=== PATIENT | female | born 1970 | race Two or more races ===

== ENCOUNTER 2017-08-18 13:16 | Outpatient (CLI) | payer OTHER | END 2017-08-18 13:24 | disposition home or self-care (01) | LOC: MAMO-SONO 13:16 | DX: Z12.31 Encounter for screening mammogram for malignant neoplasm of breast (principal) ==

== ENCOUNTER → 2018-11-03 | Outpatient (CLI) | payer OTHER | END | disposition home or self-care (01) | LOC: MAMO-SONO 07:45 → SONOGRAMA 08:06 | DX: R10.11 Right upper quadrant pain (principal) ==

== ENCOUNTER 2018-12-05 14:00 | Outpatient (CLI) | payer OTHER | END 2018-12-05 14:06 | disposition home or self-care (01) | LOC: MAMO-SONO 14:00 | DX: Z12.31 Encounter for screening mammogram for malignant neoplasm of breast (principal); Z87.898 Personal history of other specified conditions; N63.10 Unspecified lump in the right breast, unspecified quadrant; N63.20 Unspecified lump in the left breast, unspecified quadrant ==

== ENCOUNTER 2020-05-26 10:34 | Outpatient (CLI) | payer OTHER | END 2020-05-26 10:45 | disposition HB | LOC: MAMO-SONO 10:34 | PROVIDERS: ATTEND Specialist | DX: Z12.31 Encounter for screening mammogram for malignant neoplasm of breast (principal); N64.59 Other signs and symptoms in breast; N60.01 Solitary cyst of right breast ==

== ENCOUNTER 2020-09-30 13:36 | Outpatient (CLI) | payer OTHER ==
[2020-10-21] MEDS ORDERED: ZOLOFT50 MG PO (10:09)
[2020-10-21] MEDS ORDERED: XYZAL5 MG PO (10:10)
== END 2020-09-30 13:55 | disposition home or self-care (01) ==
LOC: SONOGRAMA 13:36
DX: M25.511 Pain in right shoulder (principal)

== ENCOUNTER 2020-10-27 06:45 | Day surgery (SDC) | payer OTHER ==
[~2020-10-27 06:45] MED LIST: XYZAL5 MG PO; ZOLOFT50 MG PO
== END 2020-10-27 17:10 | disposition home or self-care (01) ==
LOC: CIR.AMB 06:45
PROVIDERS: ATTEND Orthopaedic Surgery Hand Surgery
DX: G56.02 Carpal tunnel syndrome, left upper limb (principal); M65.332 Trigger finger, left middle finger; Z20.822 Contact with and (suspected) exposure to COVID-19

== ENCOUNTER 2021-10-26 06:39 | Day surgery (SDC) | payer OTHER ==
[~2021-10-26] VITALS: Ht 167.6 cm; Wt 73.5 kg
== END 2021-10-26 13:55 | disposition home or self-care (01) ==
LOC: CIR.AMB 06:39
PROVIDERS: ATTEND Orthopaedic Surgery Hand Surgery
DX: G56.01 Carpal tunnel syndrome, right upper limb (principal); Z20.822 Contact with and (suspected) exposure to COVID-19; J45.909 Unspecified asthma, uncomplicated; E11.9 Type 2 diabetes mellitus without complications; G43.909 Migraine, unspecified, not intractable, without status migrainosus; K21.9 Gastro-esophageal reflux disease without esophagitis

== ENCOUNTER 2024-06-12 13:03 | Outpatient (CLI) | payer OTHER | END 2024-06-12 13:13 | disposition home or self-care (01) | LOC: SONOGRAMA 13:03 | PROVIDERS: ATTEND Internal Medicine Gastroenterology | DX: R10.31 Right lower quadrant pain (principal) ==

== ENCOUNTER → 2024-11-13 | Outpatient (CLI) | payer OTHER | END | disposition home or self-care (01) | LOC: MAMO-SONO 10:14 | DX: N64.4 Mastodynia (principal); E04.2 Nontoxic multinodular goiter ==